=== PATIENT | female | born 1970 | race Caucasian/White ===

== ENCOUNTER 2018-03-22 13:20 | Emergency (ER) | payer MEDICAID ==
[~2018-03-22] VITALS: Ht 162.6 cm; Wt 85.0 kg
[2018-03-22 14:03] VITALS: BP 144/87
== END 2018-03-22 14:30 | disposition home or self-care (01) ==
LOC: ER 13:21
DX: Z02.89 Encounter for other administrative examinations (principal); F15.10 Other stimulant abuse, uncomplicated; F11.10 Opioid abuse, uncomplicated; F10.10 Alcohol abuse, uncomplicated; Y90.9 Presence of alcohol in blood, level not specified
CPT/HCPCS: 99281

== ENCOUNTER 2018-08-22 13:15 | Emergency (ER) | payer MEDICAID ==
[~2018-08-22] VITALS: Ht 162.6 cm; Wt 81.8 kg
[2018-08-22 13:59] LABS: BASOPHILS % (AUTO) 0.5 % (0-1); EOSINOPHILS # (AUTO) 0.1 X10'3 (0-0.9); HEMOGLOBIN 14.1 g/dl (12.0-16.0); LYMPHOCYTES # (AUTO) 1.5 X10'3 (1.1-4.8); LYMPHOCYTES % (AUTO) 23.2 % (21-51); MEAN CORPUSCULAR HEMOGLOBIN 33.5 PG (27.0-31.0); MEAN CORPUSCULAR HGB CONC 34.3 % (33.0-36.5); MEAN CORPUSCULAR VOLUME 97.9 FL (78-98); MEAN PLATELET VOLUME 7.4 FL (7.4-10.4); MONOCYTES # (AUTO) 0.3 X10'3 (0-0.9); MONOCYTES % (AUTO) 4.1 % (2-12); NEUTROPHILS # (AUTO) 4.7 X10'3 (1.8-7.7); NEUTROPHILS % (AUTO) 70.2 % (42-75); PLATELET COUNT 312 X10'3 (140-440); RED BLOOD COUNT 4.19 X10'6 (4.20-5.60); RED CELL DISTRIBUTION WIDTH 13.3 % (11.5-14.5); WHITE BLOOD COUNT 6.7 X10'3 (4.5-11.0)
[2018-08-22 14:08] LABS: INR 0.9 INR; PARTIAL THROMBOPLASTIN TIME 23 SECONDS (22-32); PROTHROMBIN TIME 9.7 SECONDS (9.0-12.0)
[2018-08-22 14:13] LABS: ALANINE AMINOTRANSFERASE 33 U/L (12-78); ALBUMIN 3.4 G/DL (3.4-5.0); ALBUMIN/GLOBULIN RATIO 0.9 (1.1-1.5); ALKALINE PHOSPHATASE 105 IU/L (46-116); ANION GAP 8 (8-16); ASPARTATE AMINO TRANSFERASE 25 U/L (10-37); BILIRUBIN,TOTAL 0.3 MG/DL (0.1-1.0); BLOOD UREA NITROGEN 12 MG/DL (7-18); BUN/CREATININE RATIO 16.9 (6.6-38.0); CALCIUM 8.8 MG/DL (8.5-10.1); CHLORIDE 104 MMOL/L (99-107); CREATININE 0.71 MG/DL (0.40-0.90); GLUCOSE 115 MG/DL (70-104); POTASSIUM 4.1 MMOL/L (3.5-5.1); SODIUM 140 MMOL/L (135-145); TOTAL CARBON DIOXIDE 28.2 MMOL/L (24-32); TOTAL PROTEIN 7.3 G/DL (6.4-8.2); eGFR 87 ML/MIN
[2018-08-22 14:42] VITALS: BP 144/79
== END 2018-08-22 14:45 | disposition home or self-care (01) ==
LOC: ER 13:15
DX: I49.3 Ventricular premature depolarization (principal); R00.2 Palpitations; G89.29 Other chronic pain; F17.200 Nicotine dependence, unspecified, uncomplicated; F15.90 Other stimulant use, unspecified, uncomplicated; F11.90 Opioid use, unspecified, uncomplicated
CPT/HCPCS: 36415; 71045; 80053; 84484; 85025; 85610; 85730; 93005; 99285

== ENCOUNTER 2018-12-26 19:46 | Emergency (ER) | payer MEDICAID | END 2018-12-26 20:13 | disposition left against medical advice (07) | LOC: ER 19:46 | DX: Z02.89 Encounter for other administrative examinations (principal); Z53.21 Procedure and treatment not carried out due to patient leaving prior to being seen by health care provider ==

== ENCOUNTER 2022-12-14 19:58 | Emergency (ER) | payer MEDICAID ==
[~2022-12-14] VITALS: Ht 162.6 cm; Wt 97.2 kg
[2022-12-14 20:44] VITALS: BP 131/89
[2022-12-14 20:50] LABS: BASOPHILS # (AUTO) 0.1 X10'3 (0-0.2); BASOPHILS % (AUTO) 0.8 % (0-1); EOSINOPHILS # (AUTO) 0.2 X10'3 (0-0.9); EOSINOPHILS % (AUTO) 1.8 % (0-6); HEMATOCRIT 44.1 % (35.0-45.0); HEMOGLOBIN 14.9 g/dl (12.0-16.0); LYMPHOCYTES # (AUTO) 2.2 X10'3 (1.1-4.8); LYMPHOCYTES % (AUTO) 21.5 % (21-51); MEAN CORPUSCULAR HEMOGLOBIN 33.8 PG (27.0-31.0); MEAN CORPUSCULAR HGB CONC 33.7 g/dL (33.0-36.5); MEAN CORPUSCULAR VOLUME 100.3 FL (78-98); MEAN PLATELET VOLUME 7.3 FL (7.4-10.4); MONOCYTES # (AUTO) 0.4 X10'3 (0-0.9); MONOCYTES % (AUTO) 4.3 % (2-12); NEUTROPHILS # (AUTO) 7.2 X10'3 (1.8-7.7); NEUTROPHILS % (AUTO) 71.6 % (42-75); PLATELET COUNT 353 X10'3 (140-440); WHITE BLOOD COUNT 10.1 X10'3 (4.5-11.0)
[2022-12-14 21:03] LABS: ALANINE AMINOTRANSFERASE 56 U/L (12-78); ALBUMIN 3.7 G/DL (3.4-5.0); ALBUMIN/GLOBULIN RATIO 0.9 (1.1-1.5); ALKALINE PHOSPHATASE 119 IU/L (46-116); ANION GAP 7 (8-16); ASPARTATE AMINO TRANSFERASE 39 U/L (10-37); BILIRUBIN,TOTAL 0.3 MG/DL (0.1-1.0); BLOOD UREA NITROGEN 10 MG/DL (7-18); BUN/CREATININE RATIO 10.6 (6.6-38.0); CHLORIDE 99 MMOL/L (99-107); CREATININE 0.94 MG/DL (0.40-0.90); GLUCOSE 113 MG/DL (70-104); POTASSIUM 3.7 MMOL/L (3.5-5.1); SODIUM 137 MMOL/L (135-145); TOTAL CARBON DIOXIDE 31.3 MMOL/L (24-32); TOTAL PROTEIN 7.7 G/DL (6.4-8.2); eGFR 62 ML/MIN
== END 2022-12-15 02:40 | disposition left against medical advice (07) ==
LOC: ER 20:00
DX: K62.5 Hemorrhage of anus and rectum (principal); Z53.21 Procedure and treatment not carried out due to patient leaving prior to being seen by health care provider
CPT/HCPCS: 36415; 80053; 85025; 86885; 86900; 86901

== ENCOUNTER 2025-09-18 12:43 | Emergency (ER) | payer MEDICAID ==
[~2025-09-18] VITALS: Ht 162.6 cm; Wt 86.4 kg
[~2025-09-18 12:43] MED LIST: CHLO25CA10 PO; PANT20TA18 PO
[2025-09-18 13:53] VITALS: BP 186/112; PULSE 90; RESP 16; TEMP 97.3; O2SAT 95
--- NOTE | 2025-09-18 14:46 | Physician Documentation ---
History of Present Illness ~ Chief Complaint: Medical Clearance Stated Complaint: MED CLEARANCE Time Seen by MD: 14:22 Primary Medical Doctor: [facility] Dental/medical HPI 55-year-old female who presents to the emergency department for medical clearance for admission to [facility]. While alert and oriented. Last drink just several hours ago. No visible signs of withdrawal. She looks forward to participate in the program. Tetanus within 5 years?: Yes Medication Reconciliation Allergies: Coded Allergies: No Known Allergies (Unverified , 05/25/25) Scheduled Pantoprazole Sodium (Protonix), 1 TAB PO DAILY Scheduled PRN Chlordiazepoxide Hcl (Librium), 1 CAP PO TID PRN for anxiety Past Medical History Past Medical History: Hepatitis C, Chronic Back Pain, Anxiety, Depression Past Surgical History: , other Alcohol Use: Abuse Drug Use: methamphetamine, heroin Lives In: Home Review of Systems All Other Systems at this time: Reviewed and Negative Constitutional: Reports: no symptoms reported Physical Exam Vital Signs: RN Vital Signs have been reviewed: Yes, Temperature: 97.3, Source: Temporal, Heart Rate: 90, Respiratory Rate: 16, BP: 186/112, Pulse Oximetry: 95, Weight: 86.360 Oxygen Flow Rate: 0 General Appearance: alert, WD/WN, no apparent distress Head: no evidence of injury Face: normal Pupils/EOM/Fundus: PERRLA Neck: full range of motion Respiratory: lungs clear, normal breath sounds Chest: no accessory muscle use Cardiovascular: normal peripheral pulses Skin: warm/dry, normal color Neurologic: oriented x4 Motor / Sensory: no motor deficit, no sensory deficit Cerebellar Function: normal; No: tremor Coordination / Gait: normal finger to nose Affect: appropriate Appearance/Memory/Insight: appropriate appearance, appropriate insight Thoughts/Hallucinations: normal thought pattern Progress Results/Orders Results/Orders Vital Signs 09/18/25 13:53 Temp 97.3 Pulse 90 Resp 16 B/P (MAP) 186/112 Pulse Ox 95 O2 Flow Rate 0 Medical Decision Making Additional information obtaine: N/A Findings 55-year-old female received medical screening examination for medical clearance for participation in [facility]. With known history hypertension she will presents to the program with the medications. No clinical suspicion for hypertensive urgency and emergency at this time. No evidence of tremors early withdrawal/ detoxification. Differential Dx:Considerations: Include: Intoxication-Alcohol, Intoxication-Ot her drug, Substance abuse disorder, Acute delirium, Alcohol withdrawl syndrom, Encephalopathy Departure Disposition: HOME / SELF CARE / HOMELESS Impression: Primary Impression: Encounter for medical screening examination Additional Impression: Hypertension Qualified Codes: I10 - Essential (primary) hypertension Discharge Instructions: Medical Screening Exam Additional Instructions: Today in the emergency department received a medical screening exam providing you medical clearance for admittance to the [facility]. Please attend as scheduled and bring all prescribed medications with you. Referrals: NO PRIMARY CARE PROVIDER (PCP) Education Educated: Patient Educated regarding: diagnosis, treatment, prognosis Signature Scribe Signature: . Attestation: . ROLAND PIERRE PAC Sep 18, 2025 14:45
== END 2025-09-18 14:50 | disposition home or self-care (01) ==
LOC: ER 12:43
DX: Z13.9 Encounter for screening, unspecified (principal); I10 Essential (primary) hypertension; Z86.19 Personal history of other infectious and parasitic diseases; G89.29 Other chronic pain; F41.9 Anxiety disorder, unspecified; F32.A Depression, unspecified; F15.90 Other stimulant use, unspecified, uncomplicated; F11.90 Opioid use, unspecified, uncomplicated; F10.10 Alcohol abuse, uncomplicated; Y90.9 Presence of alcohol in blood, level not specified; Z79.899 Other long term (current) drug therapy; Z98.890 Other specified postprocedural states
CPT/HCPCS: 99282